=== PATIENT | female | born 1980 | race Caucasian/White ===

== ENCOUNTER 2018-12-21 09:42 | Emergency (ER) | payer BC ==
[2018-12-21 10:00] VITALS: BP 124/73
--- NOTE | 2018-12-21 10:12 | EDM.PDOC ---
ED HPI GENERAL MEDICAL PROBLEM - General Chief Complaint: Eye Problems Stated Complaint: CLAIMS TO HAVE PINK EYE Time Seen by Provider: 12/21/18 09:43 Source of Information: Reports: Patient History Limitations: Reports: No Limitations - History of Present Illness INITIAL COMMENTS - FREE TEXT/NARRATIVE: History of present illness: []Patient has had 2 weeks of pink irritated eyes and has been taking allergy medicines without relief. 3 days ago she started having more crusting when she wakes up in the morning concerned of having pinkeye. Review of systems: As per history of present illness and below otherwise all systems reviewed and negative. Past medical history: As per history of present illness and as reviewed below otherwise noncontributory. Surgical history: As per history of present illness and as reviewed below otherwise noncontributory. Social history: No reported history of drug or alcohol abuse. Family history: As per history of present illness and as reviewed below otherwise noncontributory. Physical exam: General: Well developed, well nourished in NAD HEENT: Atraumatic, normocephalic, pupils reactive, negative for conjunctival pallor, there is mild erythema bilaterally there is no obvious drainage or crusting noted at this time. or scleral icterus, mucous membranes moist, throat clear, neck supple, nontender, trachea midline. Lungs: Clear to auscultation, breath sounds equal bilaterally, chest nontender. Heart: S1S2, regular, negative for clicks, rubs, or JVD. Abdomen: NABS, Soft, nondistended, nontender. Negative for masses or hepatosplenomegaly. Negative for costovertebral tenderness. Pelvis: Stable nontender. Genitourinary: Deferred. Rectal: Deferred. Extremities: Atraumatic, negative for cords or calf pain. Neurovascular unremarkable. Neuro: Awake, alert, oriented. Cranial nerves II through XII unremarkable. Cerebellum unremarkable. Motor and sensory unremarkable throughout. Exam nonfocal. Skin:warm and dry Diagnostics: None Therapeutics: None ED Course: Stable Impression: Adjunctive right is bilateral Prescriptions: Erythromycin ophthalmic ointment Plan: Take meds as directed, follow up with your primary care physician, return to ER if symptoms worsen or change. Definitive disposition and diagnosis as appropriate pending reevaluation and review of above. bilteral eyes Pain Score (Numeric/FACES): 1 - Related Data Allergies Allergy/AdvReac Type Severity Reaction Status Date / Time No Known Allergies Allergy Verified 12/21/18 09:57 Home Meds: Home Meds Control 1 tab PO ASDIRECTED 12/21/14 [History] Lisdexamfetamine Dimesylate [Vyvanse] 20 mg PO DAILY 12/21/14 [History] Spironolactone [Aldactone] 25 mg PO DAILY 12/21/14 [History] Erythromycin Base [Erythromycin 0.5% Ophth Oint] 1 applic OP Q12H #1 tube [Rx] Past Medical History HEENT History: Reports: None Cardiovascular History: Reports: None Respiratory History: Reports: None Gastrointestinal History: Reports: None Genitourinary History: Reports: None 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 Musculoskeletal History: Reports: None Neurological History: Reports: None Psychiatric History: Reports: None Endocrine/Metabolic History: Reports: None Hematologic History: Reports: None Immunologic History: Reports: None Oncologic (Cancer) History: Reports: None Dermatologic History: Reports: None - Infectious Disease History Infectious Disease History: Reports: Chicken Pox - Past Surgical History Head Surgeries/Procedures: Reports: None HEENT Surgical History: Reports: None Cardiovascular Surgical History: Reports: None Respiratory Surgical History: Reports: None GI Surgical History: Reports: None Female Surgical History: Reports: None Endocrine Surgical History: Reports: None Neurological Surgical History: Reports: None Musculoskeletal Surgical History: Reports: None Oncologic Surgical History: Reports: None Dermatological Surgical History: Reports: None Social & Family History - Family History Family Medical History: Noncontributory - Tobacco Use Smoking Status *Q: Never Smoker Second Hand Smoke Exposure: No - Caffeine Use Caffeine Use: Reports: None - Recreational Drug Use Recreational Drug Use: No ED ROS GENERAL - Review of Systems Review Of Systems: See Below ED EXAM GENERAL W FULL EYE - Physical Exam Exam: See Below Course - Vital Signs Last Recorded V/S: Last Vital Signs Temp 96.1 F 12/21/18 09:58 Pulse 95 12/21/18 09:58 Resp 18 12/21/18 09:58 BP 124/73 12/21/18 09:58 Pulse Ox 100 12/21/18 09:58 Departure - Departure Time of Disposition: 10:04 Disposition: Home, Self-Care 01 Condition: Good Clinical Impression: Conjunctivitis Qualifiers: Conjunctivitis type: unspecified Laterality: bilateral Qualified Code(s): H10.9 - Unspecified conjunctivitis - Discharge Information *PRESCRIPTION DRUG MONITORING PROGRAM REVIEWED*: No *COPY OF PRESCRIPTION DRUG MONITORING REPORT IN PATIENT IVÁN: No Prescriptions: Erythromycin Base [Erythromycin 0.5% Ophth Oint] 1 applic OP Q12H #1 tube Referrals: Alfredo Murguia MD [Primary Care Provider] - Additional Instructions: The following information is given to patients seen in the emergency department who are being discharged to home. This information is to outline your options for follow-up care. We provide all patients seen in our emergency department with a follow-up referral. The need for follow-up, as well as the timing and circumstances, are variable depending upon the specifics of your emergency department visit. If you don't have a primary care physician on staff, we will provide you with a referral. We always advise you to contact your personal physician following an emergency department visit to inform them of the circumstance of the visit and for follow-up with them and/or the need for any referrals to a consulting specialist. The emergency department will also refer you to a specialist when appropriate. This referral assures that you have the opportunity for follow-up care with a specialist. All of these measure are taken in an effort to provide you with optimal care, which includes your follow-up. Under all circumstances we always encourage you to contact your private physician who remains a resource for coordinating your care. When calling for follow-up care, please make the office aware that this follow-up is from your recent emergency room visit. If for any reason you are refused follow-up, please contact the [facility] Emergency Department at and asked to speak to the emergency department charge nurse. [facility] [address] [place] [id number]
== END 2018-12-21 10:23 | disposition home or self-care (01) ==
LOC: MW.ED 09:42
DX: H10.9 Unspecified conjunctivitis (principal); Z79.899 Other long term (current) drug therapy; Z79.3 Long term (current) use of hormonal contraceptives
CPT/HCPCS: 99282; 99283

== ENCOUNTER 2019-04-30 18:23 | Emergency (ER) | payer BC, OTHER ==
[2019-04-30 18:52] VITALS: PULSE 96
--- NOTE | 2019-04-30 19:14 | EDM.PDOC ---
ED HPI GENERAL MEDICAL PROBLEM - General Chief Complaint: Respiratory Problem Stated Complaint: FLU Time Seen by Provider: 04/30/19 18:49 Source of Information: Reports: Patient History Limitations: Reports: No Limitations - History of Present Illness INITIAL COMMENTS - FREE TEXT/NARRATIVE: HISTORY AND PHYSICAL: History of present illness: Patient is a 38-year-old female who presents to the ED today with concern of generalized body aches, low-grade fever, and cough. Patient states that her fever at home was been around 100. Patient states that over the past 1-2 weeks she has had a cough. Patient denies any health history or any other symptoms or concerns. Patient denies chest pain, shortness of breath. Denies headache, neck stiff ness , change in vision, syncope, or near syncope. Denies nausea, vomiting, abdominal pain, diarrhea, constipation, or dysuria. Has not noted any blood in urine or stool. Patient has been eating and drinking appropriately. Review of systems: As per history of present illness and below otherwise all systems reviewed and negative. Past medical history: As per history of present illness and as reviewed below otherwise noncontributory. Surgical history: As per history of present illness and as reviewed below otherwise noncontributory. Social history: See social history for further information Family history: As per history of present illness and as reviewed below otherwise noncontributory. Physical exam: General: Patient is alert, oriented, and in no acute distress. Patient sitting comfortably on exam table. HEENT: Atraumatic, normocephalic, pupils equal and reactive bilaterally, negative for conjunctival pallor or scleral icterus, mucous membranes moist, TMs normal bilaterally, throat clear, neck supple, nontender, trachea midline. No drooling or trismus noted. No meningeal signs. No hot potato voice noted. Lungs: Clear to auscultation, breath sounds equal bilaterally, chest nontender. Dry cough on exam. Heart: S1S2, regular rate and rhythm without overt murmur Abdomen: Soft, nondistended, nontender. Negative for masses or hepatosplenomegaly. Negative for costovertebral tenderness. Pelvis: Stable nontender. Genitourinary: Deferred. Rectal: Deferred. Skin: Intact, warm, dry. No lesions or rashes noted. Extremities: Atraumatic, negative for cords or calf pain. Neurovascular unremarkable. Neuro: Awake, alert, oriented. Cranial nerves II through XII unremarkable. Cerebellum unremarkable. Motor and sensory unremarkable throughout. Exam nonfocal. Notes: UA does show a early urinary tract infection. Will start on antibiotic at this time and follow culture. Discussed the importance for follow with the primary care provider. Voices understanding and is agreeable to plan of care. Denies any further questions or concerns at this time. Diagnostics: Influenza, CBC, CMP, UA, urine hCG, chest x-ray, urine culture Therapeutics: None Prescription: Macrobid Impression: Flu-like illness Urinary tract infection Plan: 1. Take medication as prescribed. You can alternate ibuprofen and Tylenol as directed for pain and discomfort. 2. Follow-up with your primary care provider as discussed. Return to the ED as needed and as discussed. Definitive disposition and diagnosis as appropriate pending reevaluation and review of above. 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 Musculoskeletal History: Reports: None Neurological History: Reports: None Psychiatric History: Reports: ADD, Anxiety Endocrine/Metabolic History: Reports: None Hematologic History: Reports: None Immunologic History: Reports: None Oncologic (Cancer) History: Reports: None Dermatologic History: Reports: None - Infectious Disease History Infectious Disease History: Reports: Chicken Pox - Past Surgical History Head Surgeries/Procedures: Reports: None HEENT Surgical History: Reports: None Cardiovascular Surgical History: Reports: None Respiratory Surgical History: Reports: None GI Surgical History: Reports: None Female Surgical History: Reports: Section Endocrine Surgical History: Reports: None Neurological Surgical History: Reports: None Musculoskeletal Surgical History: Reports: None Oncologic Surgical History: Reports: None Dermatological Surgical History: Reports: None Social & Family History - Family History Family Medical History: Noncontributory - Tobacco Use Smoking Status *Q: Never Smoker - Caffeine Use Caffeine Use: Reports: None - Recreational Drug Use Recreational Drug Use: No ED ROS GENERAL - Review of Systems Review Of Systems: Comprehensive ROS is negative, except as noted in HPI. ED EXAM, GENERAL - Physical Exam Exam: See Below (See dictation) Course - Vital Signs Last Recorded V/S: Last Vital Signs Temp 99.0 F 04/30/19 18:49 Pulse 96 04/30/19 18:49 Resp 18 04/30/19 18:49 BP 123/82 04/30/19 18:49 Pulse Ox 99 04/30/19 18:49 - Orders/Labs/Meds Orders: Active Orders 24 hr Category Date Time Status CULTURE URINE [RM] Stat Lab 04/30/19 20:13 Ordered Labs: Laboratory Tests 04/30/19 04/30/19 04/30/19 Range/Units 19:15 19:15 19:25 WBC 11.09 H (4.0-11.0) K/uL RBC 4.11 L (4.30-5.90) M/uL Hgb 12.6 (12.0-16.0) g/dL Hct 37.9 (36.0-46.0) % MCV 92.2 (80.0-98.0) fL MCH 30.7 (27.0-32.0) pg MCHC 33.2 (31.0-37.0) g/dL RDW Std Deviation 44.6 (28.0-62.0) fl RDW Coeff of Ghanshyam 13 (11.0-15.0) % Plt Count 283 (150-400) K/uL MPV 9.70 (7.40-12.00) fL Neut % (Auto) 79.1 (48.0-80.0) % Lymph % (Auto) 10.1 L (16.0-40.0) % Ple[place] % (Auto) 9.3 (0.0-15.0) % Eos % (Auto) 1.2 (0.0-7.0) % Baso % (Auto) 0.3 (0.0-1.5) % Neut # (Auto) 8.8 H (1.4-5.7) K/uL Lymph # (Auto) 1.1 (0.6-2.4) K/uL Ple[place] # (Auto) 1.0 H (0.0-0.8) K/uL Eos # (Auto) 0.1 (0.0-0.7) K/uL Baso # (Auto) 0.0 (0.0-0.1) K/uL Nucleated RBC % 0.0 /100WBC Nucleated RBCs # 0 K/uL Sodium (136-145) mmol/L Potassium (3.5-5.1) mmol/L Chloride (98-107) mmol/L Carbon Dioxide (21.0-32.0) mmol/L BUN (7.0-18.0) mg/dL Creatinine (0.6-1.0) mg/dL Est Cr Clr Drug Dosing mL/min Estimated GFR (MDRD) ml/min Glucose (74-106) mg/dL Calcium (8.5-10.1) mg/dL Total Bilirubin (0.2-1.0) mg/dL AST (15-37) IU/L ALT (14-63) IU/L Alkaline Phosphatase (46-116) U/L Total Protein (6.4-8.2) g/dL Albumin (3.4-5.0) g/dL Globulin (2.6-4.0) g/dL Albumin/Globulin Ratio (0.9-1.6) Urine Color YELLOW Urine Appearance CLEAR Urine pH 5.5 (5.0-8.0) Ur Specific Wolcott 1.025 (1.001-1.035) Urine Protein NEGATIVE (NEGATIVE) mg/dL Urine Glucose (UA) NEGATIVE (NEGATIVE) mg/dL Urine Ketones NEGATIVE (NEGATIVE) mg/dL Urine Occult Blood SMALL H (NEGATIVE) Urine Nitrite NEGATIVE (NEGATIVE) Urine Bilirubin NEGATIVE (NEGATIVE) Urine Urobilinogen 0.2 (<2.0) EU/dL Ur Leukocyte Esterase NEGATIVE (NEGATIVE) Urine RBC 0-3 (0-2/HPF) Urine WBC 1-3 (0-5/HPF) Ur Epithelial Cells FEW (NONE-FEW) Urine Bacteria 1+ H (NEGATIVE) Urine Mucus LIGHT (NONE-MOD) Urine HCG, Qual NEGATIVE (NEGATIVE) 04/30/19 Range/Units 19:25 WBC (4.0-11.0) K/uL RBC (4.30-5.90) M/uL Hgb (12.0-16.0) g/dL Hct (36.0-46.0) % MCV (80.0-98.0) fL MCH (27.0-32.0) pg MCHC (31.0-37.0) g/dL RDW Std Deviation (28.0-62.0) fl RDW Coeff of Ghanshyam (11.0-15.0) % Plt Count (150-400) K/uL MPV (7.40-12.00) fL Neut % (Auto) (48.0-80.0) % Lymph % (Auto) (16.0-40.0) % Pleasants % (Auto) (0.0-15.0) % Eos % (Auto) (0.0-7.0) % Baso % (Auto) (0.0-1.5) % Neut # (Auto) (1.4-5.7) K/uL Lymph # (Auto) (0.6-2.4) K/uL Pleasants # (Auto) (0.0-0.8) K/uL Eos # (Auto) (0.0-0.7) K/uL Baso # (Auto) (0.0-0.1) K/uL Nucleated RBC % /100WBC Nucleated RBCs # K/uL Sodium 138 (136-145) mmol/L Potassium 3.8 (3.5-5.1) mmol/L Chloride 103 (98-107) mmol/L Carbon Dioxide 23.4 (21.0-32.0) mmol/L BUN 5 L (7.0-18.0) mg/dL Creatinine 0.8 (0.6-1.0) mg/dL Est Cr Clr Drug Dosing 87.02 mL/min Estimated GFR (MDRD) > 60.0 ml/min Glucose 94 (74-106) mg/dL Calcium 8.9 (8.5-10.1) mg/dL Total Bilirubin 0.3 (0.2-1.0) mg/dL AST 18 (15-37) IU/L ALT 17 (14-63) IU/L Alkaline Phosphatase 105 (46-116) U/L Total Protein 7.7 (6.4-8.2) g/dL Albumin 3.8 (3.4-5.0) g/dL Globulin 3.9 (2.6-4.0) g/dL Albumin/Globulin Ratio 1.0 (0.9-1.6) Urine Color Urine Appearance Urine pH (5.0-8.0) Ur Specific Wolcott (1.001-1.035) Urine Protein (NEGATIVE) mg/dL Urine Glucose (UA) (NEGATIVE) mg/dL Urine Ketones (NEGATIVE) mg/dL Urine Occult Blood (NEGATIVE) Urine Nitrite (NEGATIVE) Urine Bilirubin (NEGATIVE) Urine Urobilinogen (<2.0) EU/dL Ur Leukocyte Esterase (NEGATIVE) Urine RBC (0-2/HPF) Urine WBC (0-5/HPF) Ur Epithelial Cells (NONE-FEW) Urine Bacteria (NEGATIVE) Urine Mucus (NONE-MOD) Urine HCG, Qual (NEGATIVE) Departure - Departure Time of Disposition: 20:17 Disposition: Home, Self-Care 01 Clinical Impression: Flu-like symptoms Urinary tract infection Qualifiers: Urinary tract infection type: acute cystitis Hematuria presence: without hematuria Qualified Code(s): N30.00 - Acute cystitis without hematuria - Discharge Information Referrals: Rubina Moreno NP [Primary Care Provider] - Forms: ED Department Discharge Additional Instructions: The following information is given to patients seen in the emergency department who are being discharged to home. This information is to outline your options for follow-up care. We provide all patients seen in our emergency department with a follow-up referral. The need for follow-up, as well as the timing and circumstances, are variable depending upon the specifics of your emergency department visit. If you don't have a primary care physician on staff, we will provide you with a referral. We always advise you to contact your personal physician following an emergency department visit to inform them of the circumstance of the visit and for follow-up with them and/or the need for any referrals to a consulting specialist. The emergency department will also refer you to a specialist when appropriate. This referral assures that you have the opportunity for follow-up care with a specialist. All of these measure are taken in an effort to provide you with optimal care, which includes your follow-up. Under all circumstances we always encourage you to contact your private physician who remains a resource for coordinating your care. When calling for follow-up care, please make the office aware that this follow-up is from your recent emergency room visit. If for any reason you are refused follow-up, please contact the [facility] Emergency Department at and asked to speak to the emergency department charge nurse. [facility] [address] [place] [address] [facility] [address] [place] [address] 1. Take medication as prescribed. You can alternate ibuprofen and Tylenol as directed for pain and discomfort. 2. Follow-up with your primary care provider as discussed. Return to the ED as needed and as discussed. - My Orders Last 24 Hours: My Active Orders 04/30/19 20:13 CULTURE URINE [RM] Stat - Assessment/Plan Last 24 Hours: My Active Orders 04/30/19 20:13 CULTURE URINE [RM] Stat
[2019-04-30 19:56] LABS: BLOOD UREA NITROGEN,BUN 5 mg/dL (7.0-18.0); CARBON DIOXIDE,CO2 23.4 mmol/L (21.0-32.0); CHLORIDE,CL 103 mmol/L (98-107); GLUCOSE RANDOM 94 mg/dL (74-106); POTASSIUM,K 3.8 mmol/L (3.5-5.1); SODIUM,NA 138 mmol/L (136-145)
--- NOTE | 2019-04-30 20:13 | CR ---
Indication: Cough. Fever. Technique: PA and lateral views the chest. Comparison: None Findings: The heart is normal in size. The lungs are clear. No infiltrate, pleural effusion, or pneumothorax is identified. Impression: No acute cardiopulmonary process. Dictated by Holly Madrid MD @ Apr 30 2019 8:10PM Signed by Dr. Holly Madrid @ Apr 30 2019 8:10PM
[2019-04-30 20:44] VITALS: BP 129/75
== END 2019-04-30 20:46 | disposition home or self-care (01) ==
LOC: MW.ED 18:23
DX: R05 Cough (principal); R50.9 Fever, unspecified; R52 Pain, unspecified; N30.00 Acute cystitis without hematuria
CPT/HCPCS: 36415; 71046; 71046-26; 80053; 81001; 81025; 85025; 87086; 87804; 99283-25

== ENCOUNTER 2020-06-08 05:36 | Observation (INO) | payer OTHER ==
[2020-06-08] MEDS ORDERED: Morphine 4 MG/ML Syringe IVPUSH ONE ×2 (05:58→08:12)
--- NOTE | 2020-06-08 06:05 | EDM.PDOC ---
<Chucho Hankins - Last Filed: 06/08/20 06:02> ED HPI GENERAL MEDICAL PROBLEM - General Chief Complaint: Abdominal Pain Stated Complaint: ABDOMINAL PAIN Time Seen by Provider: 06/08/20 05:43 Source of Information: Reports: Patient History Limitations: Reports: No Limitations - History of Present Illness INITIAL COMMENTS - FREE TEXT/NARRATIVE: Pt is a 39-year-old female presents today for lower abdominal pain that started about 8 PM. Patient states the pain has been constant and not better with any event. Did mention some pain with twisting or turning. Patient denied any vomiting diarrhea fevers or chills. Patient did report some blood in her urine. Abdomen Pain Score (Numeric/FACES): 10 - Related Data Allergies Allergy/AdvReac Type Severity Reaction Status Date / Time No Known Allergies Allergy Verified 06/08/20 14:47 Home Meds: Home Meds Acetaminophen/HYDROcodone [Orrtanna 325-5 MG] 1 - 2 tab PO Q6H PRN #15 tablet 06/08/20 [Rx] Control Pills 1 tab PO DAILY 06/08/20 [History] Past Medical History HEENT History: Reports: None Cardiovascular History: Reports: None Respiratory History: Reports: None Gastrointestinal History: Reports: None Genitourinary History: Reports: None BUSINESS SYSTEMS MANAGER History: Reports: None Musculoskeletal History: Reports: None Neurological History: Reports: None Psychiatric History: Reports: None Endocrine/Metabolic History: Reports: None Insulin Pump Model and Air Tucker: None Hematologic History: Reports: None Immunologic History: Reports: None Oncologic (Cancer) History: Reports: None Dermatologic History: Reports: None - Infectious Disease History Infectious Disease History: Reports: Chicken Pox - Past Surgical History Head Surgeries/Procedures: Reports: None HEENT Surgical History: Reports: None Cardiovascular Surgical History: Reports: None Respiratory Surgical History: Reports: None GI Surgical History: Reports: None Female Surgical History: Reports: Section Endocrine Surgical History: Reports: None Neurological Surgical History: Reports: None Musculoskeletal Surgical History: Reports: None Oncologic Surgical History: Reports: None Dermatological Surgical History: Reports: None Social & Family History - Family History Family Medical History: No Pertinent Family History - Tobacco Use Tobacco Use Status *Q: Never Tobacco User - Caffeine Use Caffeine Use: Reports: None - Recreational Drug Use Recreational Drug Use: No ED ROS GENERAL - Review of Systems Review Of Systems: See Below Constitutional: Reports: No Symptoms HEENT: Reports: No Symptoms Respiratory: Reports: No Symptoms Cardiovascular: Reports: No Symptoms Endocrine: Reports: No Symptoms GI/Abdominal: Reports: Abdominal Pain : Reports: Hematuria Musculoskeletal: Reports: No Symptoms Skin: Reports: No Symptoms Neurological: Reports: No Symptoms Psychiatric: Reports: No Symptoms Hematologic/Lymphatic: Reports: No Symptoms Immunologic: Reports: No Symptoms ED EXAM, GENERAL - Physical Exam Exam: See Below Exam Limited By: No Limitations General Appearance: Alert, WD/WN, No Apparent Distress Respiratory/Chest: No Respiratory Distress Cardiovascular: Regular Rate, Rhythm GI/Abdominal: Normal Bowel Sounds, Soft, No Organomegaly, Tender Extremities: Normal Inspection Neurological: Alert, Oriented, Normal Cognition Departure - Departure Disposition: Admitted As Inpatient 68 Clinical Impression: Appendicitis Qualifiers: Appendicitis type: acute appendicitis Acute appendicitis type: unspecified acute appendicitis type Qualified Code(s): K35.80 - Unspecified acute appendicitis - Discharge Information Sepsis Event Note (ED) - Evaluation Sepsis Screening Result: No Definite Risk - Assessment/Plan Assessment:: Patient is a 39-year-old female who presents today for abdominal pain. Patient will have labs CT scan the pain control and reassess. <Mio Ye - Last Filed: 06/08/20 18:13> ED HPI GENERAL MEDICAL PROBLEM - History of Present Illness INITIAL COMMENTS - FREE TEXT/NARRATIVE: Patient was signed out to me by Dr. Hankins pending CT abdomen pelvis at 7 AM I did reevaluate the patient and patient had continued pain which is worse in the right lower quadrant with minimal rebound but significant tenderness. The patient's vitals at this time are stable. Labs reviewed which does show a leukocytosis of 18.52 with neutrophilic predominance. CMP reveals hyponatremia at 133 otherwise unremarkable. Urine hCG was negative. Urinalysis was negative The radiological images were viewed by myself along with reading the report from the radiologist. CT abdomen pelvis with contrast reveals acute mild appendicitis without any evidence of perforation or abscess. There is some colonic diverticulosis After imaging I did discuss the results with the patient. I discussed her at this time that I would like to make her n.p.o. At the time of my reevaluation she had some continued abdominal pain. We will provide the patient with additional morphine IV. I discussed her at this time that I would like to start her on antibiotics and that I would need to contact a surgeon. She was amenable to this plan. I contacted Dr. Child who stated that he would come and evaluate the patient. I also started the patient on maintenance fluids at 125 cc/h. DISPOSITION: The patient was taken to the operating room for appendicitis CONDITION: Fair PROCEDURES: None FINAL IMPRESSION(S)/DIAGNOSES: 1. Acute appendicitis Mio Ye M.D. Course - Vital Signs Last Recorded V/S: Last Vital Signs Temp 36.8 C 06/08/20 14:00 Pulse 72 06/08/20 15:05 Resp 14 06/08/20 15:05 BP 94/54 L 06/08/20 15:05 Pulse Ox 98 06/08/20 15:05 - Orders/Labs/Meds Orders: Active Orders 24 hr Category Date Time Status Admission Status [Patient Status] [ADT] Stat ADT 06/08/20 09:35 Active Cardiac Monitoring [RC] . DIRECTED Care 06/08/20 09:35 Active Acetaminophen [Ofirmev] 1,000 mg Med 06/08/20 10:51 Active Premix Bag 1 bag IV ONETIME Lactated Ringers [Ringers, Lactated] 1,000 ml Med 06/08/20 08:15 Active IV ASDIRECTED fentaNYL [Sublimaze] Med 06/08/20 10:51 Active 50 mcg IVPUSH Q5M PRN Medication Orders Hydrocodone Bitart/Acetaminophen ([place] 325-5 Mg) 2 tab PO Q4H PRN PRN Reason: Pain (moderate 4-6) Last Admin: 06/08/20 17:18 Dose: 2 tab Documented by: DAVID Docusate Sodium (Colace) 100 mg PO BID PRN PRN Reason: Constipation Fentanyl (Sublimaze) 50 mcg IVPUSH Q5M PRN PRN Reason: Pain Hydromorphone HCl (Dilaudid) 0.5 mg IVPUSH Q1H PRN PRN Reason: Pain (severe 7-10) Lactated Ringer's (Ringers, Lactated) 1,000 mls @ 125 mls/hr IV ASDIRECTED JAMIE Last Admin: 06/08/20 12:28 Dose: 125 mls/hr Documented by: Infusion: 06/08/20 12:28 Dose: 125 mls/hr Documented by: Admin: 06/08/20 08:18 Dose: 125 mls/hr Documented by: RIAN Acetaminophen 1,000 mg/ Premix 100 mls @ 400 mls/hr IV ONETIME PRN PRN Reason: Pain Lactated Ringer's (Ringers, Lactated) 1,000 mls @ 125 mls/hr IV ASDIRECTED [facility] Last Admin: 06/08/20 12:29 Dose: 125 mls/hr Documented by: TWAN Cefoxitin Sodium 2 gm/ Premix 50 mls @ 100 mls/hr IV Q6H [facility] Last Admin: 06/08/20 13:36 Dose: 100 mls/hr Documented by: DAVID Ondansetron HCl (Zofran) 4 mg IVPUSH Q6H PRN PRN Reason: Nausea/Vomiting Labs: Laboratory Tests 06/08/20 06/08/20 06/08/20 Range/Units 05:45 05:45 06:00 WBC 18.52 H (4.0-11.0) K/uL RBC 4.12 L (4.30-5.90) M/uL Hgb 12.1 (12.0-16.0) g/dL Hct 37.2 (36.0-46.0) % MCV 90.3 (80.0-98.0) fL MCH 29.4 (27.0-32.0) pg MCHC 32.5 (31.0-37.0) g/dL RDW Std Deviation 44.0 (28.0-62.0) fl RDW Coeff of Ghanshyam 13 (11.0-15.0) % Plt Count 364 (150-400) K/uL MPV 9.80 (7.40-12.00) fL Neut % (Auto) 89.3 H (48.0-80.0) % Lymph % (Auto) 3.8 L (16.0-40.0) % [place] % (Auto) 6.6 (0.0-15.0) % Eos % (Auto) 0.1 (0.0-7.0) % Baso % (Auto) 0.2 (0.0-1.5) % Neut # (Auto) 16.6 H (1.4-5.7) K/uL Lymph # (Auto) 0.7 (0.6-2.4) K/uL [place] # (Auto) 1.2 H (0.0-0.8) K/uL Eos # (Auto) 0.0 (0.0-0.7) K/uL Baso # (Auto) 0.0 (0.0-0.1) K/uL Nucleated RBC % 0.0 /100WBC Nucleated RBCs # 0 K/uL Sodium 133 L (136-145) mmol/L Potassium 4.0 (3.5-5.1) mmol/L Chloride 100 (98-107) mmol/L Carbon Dioxide 24.3 (21.0-32.0) mmol/L BUN 5 L (7.0-18.0) mg/dL Creatinine 0.8 (0.6-1.0) mg/dL Est Cr Clr Drug Dosing 93.63 mL/min Estimated GFR (MDRD) > 60.0 ml/min Glucose 115 H (74-106) mg/dL Calcium 9.0 (8.5-10.1) mg/dL Total Bilirubin 0.6 (0.2-1.0) mg/dL AST 18 (15-37) IU/L ALT 20 (14-63) IU/L Alkaline Phosphatase 74 (46-116) U/L Total Protein 6.9 (6.4-8.2) g/dL Albumin 3.6 (3.4-5.0) g/dL Globulin 3.3 (2.6-4.0) g/dL Albumin/Globulin Ratio 1.1 (0.9-1.6) Urine Color YELLOW Urine Appearance CLEAR Urine pH 7.0 (5.0-8.0) Ur Specific [place] 1.015 (1.001-1.035) Urine Protein NEGATIVE (NEGATIVE) mg/dL Urine Glucose (UA) NEGATIVE (NEGATIVE) mg/dL Urine Ketones NEGATIVE (NEGATIVE) mg/dL Urine Occult Blood NEGATIVE (NEGATIVE) Urine Nitrite NEGATIVE (NEGATIVE) Urine Bilirubin NEGATIVE (NEGATIVE) Urine Urobilinogen 0.2 (<2.0) EU/dL Ur Leukocyte Esterase NEGATIVE (NEGATIVE) Urine HCG, Qual (NEGATIVE) SARS-CoV-2 RNA (ASIA) (NEGATIVE) 06/08/20 06/08/20 Range/Units 06:00 08:04 WBC (4.0-11.0) K/uL RBC (4.30-5.90) M/uL Hgb (12.0-16.0) g/dL Hct (36.0-46.0) % MCV (80.0-98.0) fL MCH (27.0-32.0) pg MCHC (31.0-37.0) g/dL RDW Std Deviation (28.0-62.0) fl RDW Coeff of Ghanshyam (11.0-15.0) % Plt Count (150-400) K/uL MPV (7.40-12.00) fL Neut % (Auto) (48.0-80.0) % Lymph % (Auto) (16.0-40.0) % [place] % (Auto) (0.0-15.0) % Eos % (Auto) (0.0-7.0) % Baso % (Auto) (0.0-1.5) % Neut # (Auto) (1.4-5.7) K/uL Lymph # (Auto) (0.6-2.4) K/uL [place] # (Auto) (0.0-0.8) K/uL Eos # (Auto) (0.0-0.7) K/uL Baso # (Auto) (0.0-0.1) K/uL Nucleated RBC % /100WBC Nucleated RBCs # K/uL Sodium (136-145) mmol/L Potassium (3.5-5.1) mmol/L Chloride (98-107) mmol/L Carbon Dioxide (21.0-32.0) mmol/L BUN (7.0-18.0) mg/dL Creatinine (0.6-1.0) mg/dL Est Cr Clr Drug Dosing mL/min Estimated GFR (MDRD) ml/min Glucose (74-106) mg/dL Calcium (8.5-10.1) mg/dL Total Bilirubin (0.2-1.0) mg/dL AST (15-37) IU/L ALT (14-63) IU/L Alkaline Phosphatase (46-116) U/L Total Protein (6.4-8.2) g/dL Albumin (3.4-5.0) g/dL Globulin (2.6-4.0) g/dL Albumin/Globulin Ratio (0.9-1.6) Urine Color Urine Appearance Urine pH (5.0-8.0) Ur Specific [place] (1.001-1.035) Urine Protein (NEGATIVE) mg/dL Urine Glucose (UA) (NEGATIVE) mg/dL Urine Ketones (NEGATIVE) mg/dL Urine Occult Blood (NEGATIVE) Urine Nitrite (NEGATIVE) Urine Bilirubin (NEGATIVE) Urine Urobilinogen (<2.0) EU/dL Ur Leukocyte Esterase (NEGATIVE) Urine HCG, Qual NEGATIVE (NEGATIVE) SARS-CoV-2 RNA (ASIA) NEGATIVE (NEGATIVE) Meds: Medications Generic Name Dose Route Start Last Admin Trade Name Freq PRN Reason Stop Dose Admin Hydrocodone Bitart/Acetaminophen 2 tab 06/08/20 12:04 06/08/20 17:18 Orrtanna 325-5 Mg PO 2 tab Q4H PRN Administration Pain (moderate 4-6) Docusate Sodium 100 mg 06/08/20 12:04 Colace PO BID PRN Constipation Fentanyl 50 mcg 06/08/20 10:51 Sublimaze IVPUSH Q5M PRN Pain Hydromorphone HCl 0.5 mg 06/08/20 12:04 Dilaudid IVPUSH Q1H PRN Pain (severe 7-10) Lactated Ringer's 1,000 mls @ 125 mls/hr 06/08/20 08:15 06/08/20 12:28 Ringers, Lactated IV 125 mls/hr ASDIRECTED JAMIE Administration Acetaminophen 1,000 mg/ Premix 100 mls @ 400 mls/hr 06/08/20 10:51 IV ONETIME PRN Pain Lactated Ringer's 1,000 mls @ 125 mls/hr 06/08/20 12:15 06/08/20 12:29 Ringers, Lactated IV 125 mls/hr ASDIRECTED JAMIE Administration Cefoxitin Sodium 2 gm/ Premix 50 mls @ 100 mls/hr 06/08/20 12:15 06/08/20 13:36 IV 100 mls/hr Q6H JAMIE Administration Ondansetron HCl 4 mg 06/08/20 12:04 Zofran IVPUSH Q6H PRN Nausea/Vomiting Discontinued Medications Generic Name Dose Route Start Last Admin Trade Name Freq PRN Reason Stop Dose Admin Bupivacaine HCl Confirm 06/08/20 10:11 Sensorcaine-Mpf 0.5% Administered 06/08/20 10:12 Dose 20 ml .ROUTE .STK-MED ONE Fentanyl Confirm 06/08/20 09:58 Sublimaze Administered 06/08/20 09:59 Dose 250 mcg .ROUTE .STK-MED ONE Fentanyl Confirm 06/08/20 11:29 Sublimaze Administered 06/08/20 11:30 Dose 100 mcg .ROUTE .STK-MED ONE Glycopyrrolate Confirm 06/08/20 09:58 Robinul Administered 06/08/20 09:59 Dose 0.8 mg .ROUTE .STK-MED ONE Metronidazole 500 mg/ Premix 100 mls @ 100 mls/hr 06/08/20 08:03 06/08/20 08:17 IV 06/08/20 09:02 100 mls/hr ONETIME ONE Administration Ceftriaxone Sodium/Dextrose 1 50 mls @ 100 mls/hr 06/08/20 08:03 06/08/20 08:14 gm/ Premix IV 06/08/20 08:32 100 mls/hr ONETIME ONE Administration Iopamidol 80 ml 06/08/20 07:00 06/08/20 07:05 Isovue Multipack-370 (76%) IVPUSH 06/08/20 07:01 80 ml ONETIME STA Administration Ketorolac Tromethamine Confirm 06/08/20 09:58 Toradol Administered 06/08/20 09:59 Dose 30 mg .ROUTE .STK-MED ONE Lidocaine Confirm 06/08/20 09:58 Xylocaine-Mpf 2% Administered 06/08/20 09:59 Dose 5 ml .ROUTE .STK-MED ONE Midazolam HCl Confirm 06/08/20 09:58 Versed 1 Mg/Ml Administered 06/08/20 09:59 Dose 2 mg .ROUTE .STK-MED ONE Morphine Sulfate 4 mg 06/08/20 05:58 06/08/20 06:09 Morphine IVPUSH 06/08/20 05:59 4 mg ONETIME ONE Administration Morphine Sulfate 4 mg 06/08/20 08:12 06/08/20 08:17 Morphine IVPUSH 06/08/20 08:13 4 mg ONETIME ONE Administration Octyl Cyanoacrylate Confirm 06/08/20 10:11 Dermabond Advance Administered 06/08/20 10:12 Dose 1 applic .ROUTE .STK-MED ONE Ondansetron HCl Confirm 06/08/20 09:58 Zofran Administered 06/08/20 09:59 Dose 4 mg .ROUTE .STK-MED ONE Propofol Confirm 06/08/20 09:57 Diprivan 20 Ml Administered 06/08/20 09:58 Dose 200 mg .ROUTE .STK-MED ONE Rocuronium [place] Confirm 06/08/20 09:58 Rocuronium [place] Administered 06/08/20 09:59 Dose 50 mg .ROUTE .STK-MED ONE Departure - Departure Time of Disposition: 09:35 Sepsis Event Note (ED) - Focused Exam Vital Signs: Vital Signs Pulse Resp BP Pulse Ox 06/08/20 09:19 72 16 132/85 97 06/08/20 08:50 70 16 131/81 98 06/08/20 07:50 68 16 139/88 96 06/08/20 07:17 72 16 136/84 99 06/08/20 06:20 65 18 131/86 99 - My Orders Last 24 Hours: My Active Orders 06/08/20 08:15 Lactated Ringers [Ringers, Lactated] 1,000 ml IV ASDIRECTED 06/08/20 09:35 Admission Status [Patient Status] [ADT] Stat Cardiac Monitoring [RC] . DIRECTED - Assessment/Plan Last 24 Hours: My Active Orders 06/08/20 08:15 Lactated Ringers [Ringers, Lactated] 1,000 ml IV ASDIRECTED 06/08/20 09:35 Admission Status [Patient Status] [ADT] Stat Cardiac Monitoring [RC] . DIRECTED
[2020-06-08 06:29] LABS: BLOOD UREA NITROGEN,BUN 5 mg/dL (7.0-18.0); CARBON DIOXIDE,CO2 24.3 mmol/L (21.0-32.0); CHLORIDE,CL 100 mmol/L (98-107); GLUCOSE RANDOM 115 mg/dL (74-106); SODIUM,NA 133 mmol/L (136-145)
[2020-06-08] MEDS ORDERED: Iopamidol 755 MG/ML 500 ML Multipack Bottle IVPUSH STA (07:00)
--- NOTE | 2020-06-08 07:52 | CT ---
INDICATION: Lower abdominal pain. TECHNIQUE: CT abdomen and pelvis acquired with 89 mL Isovue 370 IV contrast. COMPARISON: None. FINDINGS: Lower chest: Normal heart size. No pericardial effusion. Lung bases are clear. Partial visualization of breast implants. Liver: Normal size and attenuation with no appreciable intrahepatic lesions. Spleen: Normal size. Pancreas: No appreciable mass or inflammatory changes. Gallbladder and bile ducts: No calcified stones within the gallbladder. No gallbladder wall thickening. Normal caliber bile ducts. Kidneys: Normal size and enhancement. No suspicious renal lesions or hydronephrosis. Adrenal glands: No nodule or mass. No hemorrhage. GI tract: The appendix is retrocecal in location. The base of the appendix is seen on axial image 105, just medial to the ovarian vasculature and external iliac vasculature. A round density at the base of the appendix may be related to an appendicolith. Appendix is mildly dilated, measuring up to 10 mm, with mild appendiceal wall thickening. Mild periappendiceal fat stranding/inflammation is also noted. The appendix extends toward the midline, and is seen anterior to the sacrum on axial image 96. Findings are consistent with mild acute appendicitis. Mild scattered colonic diverticulosis. Moderate to large amount of stool in the colon. Vascular structures: Normal caliber abdominal aorta. Lymph nodes: No pathologically enlarged lymph nodes are identified. Miscellaneous: No free air. Small amount of free fluid is seen in the pelvis. Pelvic Organs: Uterus is present. No appreciable adnexal mass. Collapsed urinary bladder is unremarkable. Bones: No acute abnormality. IMPRESSION: 1. Findings are consistent with mild acute appendicitis. No evidence of perforation. No abscess. 2. Incidental findings as noted. Dictated by Hayder Lock MD @ 06/08/2020 7:50:30 AM Please note that all CT scans at this facility use dose modulation, iterative reconstruction, and/or weight-based dosing when appropriate to reduce radiation dose to as low as reasonably achievable. Dictated by: Hayder Lock MD @ 06/08/2020 07:51:17 (Electronically Signed)
[2020-06-08] MEDS ORDERED: cefTRIAXone 1 GM in Premix Bag 1 BAG IV ONE (08:03)
[2020-06-08] MEDS ORDERED: metroNIDAZOLE/Normal Saline 500 MG in Premix Bag 1 BAG IV ONE (08:03)
[2020-06-08] MEDS: Lactated Ringers 1,000 ML IV SCH ×2 (08:18→12:28)
[2020-06-08] MEDS ORDERED: Propofol 200 MG/20 ML SDV ONE (09:57)
[2020-06-08] MEDS ORDERED: Ketorolac 30 MG/ML SDV ONE (09:58)
[2020-06-08] MEDS ORDERED: Lidocaine 2% 5 ML SDV ONE (09:58)
[2020-06-08] MEDS ORDERED: Rocuronium Bromide 50 MG/5 ML Syringe ONE (09:58)
[2020-06-08] MEDS ORDERED: fentaNYL 250 MCG/5 ML SDV ONE (09:58)
[2020-06-08] MEDS ORDERED: Ondansetron 4 MG/2 ML SDV ONE (09:58)
[2020-06-08] MEDS ORDERED: Glycopyrrolate 0.2 MG/ML SDV ONE (09:58)
[2020-06-08] MEDS ORDERED: Midazolam 1 MG/ML 2 ML SDV ONE (09:58)
[2020-06-08] MEDS ORDERED: Octyl 2-Cyanoacrylate 1 Tube ONE (10:11)
[2020-06-08] MEDS ORDERED: Bupivacaine 0.5% 10 ML SDV ONE (10:11)
[2020-06-08] MEDS ORDERED: Acetaminophen 1,000 MG in Premix Bag 1 BAG IV PRN (10:51)
[2020-06-08] MEDS ORDERED: fentaNYL 100 MCG/2 ML SDV IVPUSH PRN (10:51)
--- NOTE | 2020-06-08 10:54 | PCM.PREANE ---
Preanesthetic Assessment - Anesthesia/Transfusion/Family Hx Anesthesia History: Prior Anesthesia Without Reaction Family History of Anesthesia Reaction: No - Review of Systems Gastrointestinal: Abdominal Pain - Physical Assessment NPO Status Date: 06/08/20 NPO Status Time: 00:05 Vital Signs: Last Vital Signs Temp 36.1 C 06/08/20 05:45 Pulse 72 06/08/20 09:19 Resp 16 06/08/20 09:19 BP 132/85 06/08/20 09:19 Pulse Ox 97 06/08/20 09:19 Height: 1.7 m Weight: 85.275 kg ASA Class: 1E Thyro-Mental Finger Breadths: 3 Mouth Opening Finger Breadths: 3 - Lab Values: Laboratory Last Values WBC 18.52 K/uL (4.0-11.0) H 06/08/20 05:45 RBC 4.12 M/uL (4.30-5.90) L 06/08/20 05:45 Hgb 12.1 g/dL (12.0-16.0) 06/08/20 05:45 Hct 37.2 % (36.0-46.0) 06/08/20 05:45 MCV 90.3 fL (80.0-98.0) 06/08/20 05:45 MCH 29.4 pg (27.0-32.0) 06/08/20 05:45 MCHC 32.5 g/dL (31.0-37.0) 06/08/20 05:45 RDW Std Deviation 44.0 fl (28.0-62.0) 06/08/20 05:45 RDW Coeff of Ghanshyam 13 % (11.0-15.0) 06/08/20 05:45 Plt Count 364 K/uL (150-400) 06/08/20 05:45 MPV 9.80 fL (7.40-12.00) 06/08/20 05:45 Neut % (Auto) 89.3 % (48.0-80.0) H 06/08/20 05:45 Lymph % (Auto) 3.8 % (16.0-40.0) L 06/08/20 05:45 [place] % (Auto) 6.6 % (0.0-15.0) 06/08/20 05:45 Eos % (Auto) 0.1 % (0.0-7.0) 06/08/20 05:45 Baso % (Auto) 0.2 % (0.0-1.5) 06/08/20 05:45 Neut # (Auto) 16.6 K/uL (1.4-5.7) H 06/08/20 05:45 Lymph # (Auto) 0.7 K/uL (0.6-2.4) 06/08/20 05:45 [place] # (Auto) 1.2 K/uL (0.0-0.8) H 06/08/20 05:45 Eos # (Auto) 0.0 K/uL (0.0-0.7) 06/08/20 05:45 Baso # (Auto) 0.0 K/uL (0.0-0.1) 06/08/20 05:45 Nucleated RBC % 0.0 /100WBC 06/08/20 05:45 Nucleated RBCs # 0 K/uL 06/08/20 05:45 Sodium 133 mmol/L (136-145) L 06/08/20 05:45 Potassium 4.0 mmol/L (3.5-5.1) 06/08/20 05:45 Chloride 100 mmol/L (98-107) 06/08/20 05:45 Carbon Dioxide 24.3 mmol/L (21.0-32.0) 06/08/20 05:45 BUN 5 mg/dL (7.0-18.0) L 06/08/20 05:45 Creatinine 0.8 mg/dL (0.6-1.0) 06/08/20 05:45 Est Cr Clr Drug Dosing 93.63 mL/min 06/08/20 05:45 Estimated GFR (MDRD) > 60.0 ml/min 06/08/20 05:45 Glucose 115 mg/dL (74-106) H 06/08/20 05:45 Calcium 9.0 mg/dL (8.5-10.1) 06/08/20 05:45 Total Bilirubin 0.6 mg/dL (0.2-1.0) 06/08/20 05:45 AST 18 IU/L (15-37) 06/08/20 05:45 ALT 20 IU/L (14-63) 06/08/20 05:45 Alkaline Phosphatase 74 U/L (46-116) 06/08/20 05:45 Total Protein 6.9 g/dL (6.4-8.2) 06/08/20 05:45 Albumin 3.6 g/dL (3.4-5.0) 06/08/20 05:45 Globulin 3.3 g/dL (2.6-4.0) 06/08/20 05:45 Albumin/Globulin Ratio 1.1 (0.9-1.6) 06/08/20 05:45 Urine Color YELLOW 06/08/20 06:00 Urine Appearance CLEAR 06/08/20 06:00 Urine pH 7.0 (5.0-8.0) 06/08/20 06:00 Ur Specific [place] 1.015 (1.001-1.035) 06/08/20 06:00 Urine Protein NEGATIVE mg/dL (NEGATIVE) 06/08/20 06:00 Urine Glucose (UA) NEGATIVE mg/dL (NEGATIVE) 06/08/20 06:00 Urine Ketones NEGATIVE mg/dL (NEGATIVE) 06/08/20 06:00 Urine Occult Blood NEGATIVE (NEGATIVE) 06/08/20 06:00 Urine Nitrite NEGATIVE (NEGATIVE) 06/08/20 06:00 Urine Bilirubin NEGATIVE (NEGATIVE) 06/08/20 06:00 Urine Urobilinogen 0.2 EU/dL (<2.0) 06/08/20 06:00 Ur Leukocyte Esterase NEGATIVE (NEGATIVE) 06/08/20 06:00 Urine HCG, Qual NEGATIVE (NEGATIVE) 06/08/20 06:00 SARS-CoV-2 RNA (ASIA) NEGATIVE (NEGATIVE) 06/08/20 08:04 - Allergies Allergies/Adverse Reactions: Allergies Allergy/AdvReac Type Severity Reaction Status Date / Time No Known Allergies Allergy Verified 06/08/20 05:52 - Acknowledgements Anesthesia Type Planned: General Anesthesia Pt an Appropriate Candidate for the Planned Anesthesia: Yes Alternatives and Risks of Anesthesia Discussed w Pt/Guardian: Yes PreAnesthesia Questionnaire HEENT History: Reports: None Cardiovascular History: Reports: None Respiratory History: Reports: None Gastrointestinal History: Reports: None Genitourinary History: Reports: None [employer] History: Reports: None Musculoskeletal History: Reports: None Neurological History: Reports: None Psychiatric History: Reports: ADHD Endocrine/Metabolic History: Reports: None Hematologic History: Reports: None Immunologic History: Reports: None Oncologic (Cancer) History: Reports: None Dermatologic History: Reports: None - Infectious Disease History Infectious Disease History: Reports: Chicken Pox - Past Surgical History Head Surgeries/Procedures: Reports: None HEENT Surgical History: Reports: None Cardiovascular Surgical History: Reports: None Respiratory Surgical History: Reports: None GI Surgical History: Reports: None Female Surgical History: Reports: Section Endocrine Surgical History: Reports: None Neurological Surgical History: Reports: None Musculoskeletal Surgical History: Reports: None Oncologic Surgical History: Reports: None Dermatological Surgical History: Reports: None - SUBSTANCE USE Tobacco Use Status *Q: Never Tobacco User Recreational Drug Use History: No - HOME MEDS Home Medications: Home Meds Control Pills 1 tab PO DAILY 06/08/20 [History] - CURRENT (IN HOUSE) MEDS Current Meds: Current Medications Fentanyl (Sublimaze) 50 mcg IVPUSH Q5M PRN PRN Reason: Pain Lactated Ringer's (Ringers, Lactated) 1,000 mls @ 125 mls/hr IV ASDIRECTED [facility] Last Admin: 06/08/20 08:18 Dose: 125 mls/hr Documented by: Acetaminophen 1,000 mg/ Premix 100 mls @ 400 mls/hr IV Q6H PRN PRN Reason: Pain Discontinued Medications Bupivacaine HCl (Sensorcaine-Mpf 0.5%) Confirm Administered Dose 20 ml .ROUTE .STK-MED ONE Stop: 06/08/20 10:12 Fentanyl (Sublimaze) Confirm Administered Dose 250 mcg .ROUTE .STK-MED ONE Stop: 06/08/20 09:59 Glycopyrrolate (Robinul) Confirm Administered Dose 0.8 mg .ROUTE .STK-MED ONE Stop: 06/08/20 09:59 Metronidazole 500 mg/ Premix 100 mls @ 100 mls/hr IV ONETIME ONE Stop: 06/08/20 09:02 Last Admin: 06/08/20 08:17 Dose: 100 mls/hr Documented by: Ceftriaxone Sodium/Dextrose 1 (gm/ Premix) 50 mls @ 100 mls/hr IV ONETIME ONE Stop: 06/08/20 08:32 Last Admin: 06/08/20 08:14 Dose: 100 mls/hr Documented by: Iopamidol (Isovue Multipack-370 (76%)) 80 ml IVPUSH ONETIME STA Stop: 06/08/20 07:01 Last Admin: 06/08/20 07:05 Dose: 80 ml Documented by: Ketorolac Tromethamine (Toradol) Confirm Administered Dose 30 mg .ROUTE .STK-MED ONE Stop: 06/08/20 09:59 Lidocaine (Xylocaine-Mpf 2%) Confirm Administered Dose 5 ml .ROUTE .STK-MED ONE Stop: 06/08/20 09:59 Midazolam HCl (Versed 1 Mg/Ml) Confirm Administered Dose 2 mg .ROUTE .STK-MED ONE Stop: 06/08/20 09:59 Morphine Sulfate (Morphine) 4 mg IVPUSH ONETIME ONE Stop: 06/08/20 05:59 Last Admin: 06/08/20 06:09 Dose: 4 mg Documented by: Morphine Sulfate (Morphine) 4 mg IVPUSH ONETIME ONE Stop: 06/08/20 08:13 Last Admin: 06/08/20 08:17 Dose: 4 mg Documented by: Octyl Cyanoacrylate (Dermabond Advance) Confirm Administered Dose 1 applic .ROUTE .STK-MED ONE Stop: 06/08/20 10:12 Ondansetron HCl (Zofran) Confirm Administered Dose 4 mg .ROUTE .STK-MED ONE Stop: 06/08/20 09:59 Propofol (Diprivan 20 Ml) Confirm Administered Dose 200 mg .ROUTE .STK-MED ONE Stop: 06/08/20 09:58 Rocuronium Haughton (Rocuronium Haughton) Confirm Administered Dose 50 mg .ROUTE .STK-MED ONE Stop: 06/08/20 09:59
--- NOTE | 2020-06-08 11:28 | CONS ---
DATE OF CONSULTATION: 06/08/2020 DATE OF : 1980 PRIMARY CARE PHYSICIAN: MILAN GODINEZ NP ER Consult. REASON FOR CONSULT: Abdominal pain. HISTORY OF PRESENT ILLNESS: The patient is a pleasant 39-year-old female who says on the way home last night, she started having some abdominal pain around 7 o'clock last night. The pain was diffuse and still it got worse throughout the evening and morning. The pain now is slightly more in the lower abdomen. She denies any fevers or chills. She denies any nausea or vomiting. She denies any change in bowel habits. She went to the ER for evaluation. She had a CT scan done that showed likely mild acute appendicitis. The appendix showed mild wall thickening and periappendiceal fat stranding. Also showed likely appendicolith. Appendix potentially maybe retrocecal. PAST MEDICAL HISTORY: The patient denies any. PAST SURGICAL HISTORY: . CURRENT HOME MEDICATIONS: 1. control. 2. Patient says she received hormonal treatment for IVF treatments. ALLERGIES: No known drug allergies. FAMILY HISTORY: 1. Father with prostate cancer. 2. Says there is pancreatic cancer on the father's side. 3. Says mother side has heart disease. SOCIAL HISTORY: 1. Patient denies any tobacco use. 2. She denies any illicit drug use. 3. She denies any alcohol use. REVIEW OF SYSTEMS: Complete 12+ review of systems was done, was negative except for what is in the HPI. IMAGING: Did review report and images, again as per HPI. There is also quite bit of stool in the colon. LABORATORY DATA: White cell count is 18.5, hemoglobin is 12.1, and platelet count is 364. Sodium 133, potassium 4, chloride 100, BUN is 5, creatinine 0.8, and glucose is 115. test was negative. COVID is negative. PHYSICAL EXAM: General; Patient is resting comfortable in ER bed. She is alert and oriented, and in no acute distress HEET: Head is normal cephalic, atraumatic, She is wearing a mask Lungs: Clear to auscultation bilaterally Heart: regular rate and rhythm. No murmurs heard Abdomen: Soft and nondistended, She does have diffuse tenderness, more in the lower abdomen, some guarding but no rebound tenderness. Muscle skeletal: No gross neruo or muscle defect noted. ASSESSMENT AND PLAN: This is a pleasant 39-year-old female with most likely appendicitis. I did go over with the patient where the appendix was. I went over risks, goals, and alternatives to laparoscopic appendectomy. Risks include but not limited to bleeding, infection, abscess formation, failure of staple line, injury to nearby structures such as ureters or bowel, need to convert to open, or this could be something other than appendicitis. The patient understands, wishes to proceed. The patient received her antibiotics in the ER. We will call the OR crew in for a laparoscopic appendectomy. The patient wishes to be full code for procedure. JILL / NATE /[id number] OLIVERIO
[2020-06-08] MEDS ORDERED: fentaNYL 100 MCG/2 ML SDV ONE (11:29)
[2020-06-08] MEDS ORDERED: HYDROmorphone 2 MG/ML Syringe IVPUSH PRN (12:04)
[2020-06-08] MEDS ORDERED: Acetaminophen/HYDROcodone 325-5 MG Tab PO PRN (12:04)
[2020-06-08] MEDS ORDERED: Docusate Sodium 100 MG Cap PO PRN (12:04)
[2020-06-08] MEDS ORDERED: Ondansetron 4 MG/2 ML SDV IVPUSH PRN (12:04)
--- NOTE | 2020-06-08 12:12 | PCM.OPNOTE ---
- General Post-Op/Procedure Note Date of Surgery/Procedure: 06/08/20 Operative Procedure(s): Laparoscopic appendectomy Findings: Acute appendicitis with areas of necrosis on appendix dictation number [id number] Pre Op Diagnosis: Acute appendicitis Post-Op Diagnosis: acute appendicitis Anesthesia Technique: General ET Tube Primary Surgeon: Woodrow Child Pathology: appendix EBL in mLs: 5 Complications: None Condition: Stable
[2020-06-08] MEDS ORDERED: Lactated Ringers 1,000 ML IV SCH (12:15)
--- NOTE | 2020-06-08 12:33 | PCM.POSTAN ---
POST ANESTHESIA ASSESSMENT - VITAL SIGNS Vital Signs: Last Vital Signs Temp 37.2 C 06/08/20 12:05 Pulse 101 H 06/08/20 12:31 Resp 14 06/08/20 12:31 BP 92/52 L 06/08/20 12:31 Pulse Ox 100 06/08/20 12:31 - RESPIRATORY Respiratory Status: Respiratory Rate WNL - CARDIOVASCULAR CV Status: Pulse Rate WNL - GASTROINTESTINAL GI Status: No Symptoms - POST OP HYDRATION Hydration Status: Adequate & Stable
[2020-06-08] MEDS: cefOXitin 2 GM in Premix Bag 1 BAG IV SCH ×2 (13:36→18:17)
[2020-06-08 18:44] VITALS: BP 121/66; PULSE 87
--- NOTE | 2020-06-08 19:59 | PN ---
SUBJECTIVE: The patient is status post laparoscopic appendectomy. She is doing well. She has tolerated liquids and Jell-O. She has urination, been up and ambulating, and reports feeling much better than before the surgery. She feels ready to go home. OBJECTIVE: GENERAL: The patient is lying comfortably in her hospital bed. She is alert and oriented. ABDOMEN: Soft, nondistended. Some minimal tenderness to the lower abdomen to palpation, much improved from before the surgery and some minimal incisional tenderness. Incisions all clean, dry, and intact. Dermabond in place. No signs of infection. ASSESSMENT AND PLAN: A pleasant 39-year-old female status post laparoscopic appendectomy. actually perforated though microperforation is a possibility. The patient will receive one more dose of antibiotics and then go home. I did go over with the patient discharge instructions. She is to take it easy for the next several days with no strenuous activities or heavy activity, then may return to light duty. She should avoid driving a car for the next several days. She was discharged with pain medication, [place] 5/325. If she has any fevers, chills, nausea or vomiting, or any drainage from her incision, she needs to call our office or go to the ER. All the patient's questions were answered. I did go over the surgery with the patient, did go over her photographs also. JILL / NATE /[id number]
--- NOTE | 2020-06-09 08:10 | OR ---
SURGEON: QUE SINGER MD DATE OF PROCEDURE: 06/08/2020 Jenny Hernandez is the name in the medical records, although patient said she was recently and has changed her name recently to Carrier. PREOPERATIVE DIAGNOSIS: Acute appendicitis. POSTOPERATIVE DIAGNOSIS: Acute appendicitis. PROCEDURE PERFORMED: Laparoscopic appendectomy. FINDINGS: Acute appendicitis. There was quite a bit of reactive murky fluid in the abdominal cavity when entered. The appendix was walled off and antimesenteric middle of the appendix did look a little necrotic but did not look grossly perforated. ESTIMATED BLOOD LOSS: 5 mL. ANESTHESIA: General. COMPLICATIONS: None. SPECIMENS: Appendix. REASON FOR PROCEDURE: Patient is a pleasant 39-year-old female who yesterday evening started to have abdominal pain, that got worse throughout the day, came into the ER today, was found to have elevated white cell count, and a CT scan showing acute appendicitis, possibly retrocecal. I did go over with the patient risks, goals, and alternatives to appendectomy. Risks include but are not limited to bleeding, infection, abscess formation, failure of staple line, need to convert to open, injury to nearby structures, or this could be something other than appendicitis. The patient understands. She wished to proceed. DESCRIPTION OF PROCEDURE: The patient was brought back to the OR. She had already been given antibiotics in the ER. She was prepped and draped in usual sterile fashion. SCDs were placed. Salas catheter placed, and anesthesia provided by Anesthesia Team. Time-out was performed. An infraumbilical incision was made. This was carried down to the fascia. The base of the umbilical stalk was then grasped with Rubin, slightly elevated, and the abdominal cavity was entered with Veress needle. Syringe was placed and pulled back. No blood or succus. Had positive drop test. Now, insufflation was began. Pneumoperitoneum was established. After pneumoperitoneum was established, a 5 mm trocar was placed with a 5 mm camera in it into the abdominal cavity. The abdomen was inspected. No injury was noted. The patient did have what appeared to be some low murky reactive fluid in the abdomen and the pelvis and up and around the liver. Now, the 12 mm trocar was placed in the left lower abdomen. I then placed another 5 mm in the left upper abdomen, so be in better position in case it was retrocecal, we would have to mobilize the cecum. The patient was then placed in a head-down position and airplaned towards myself. The appendix was then identified and was slightly walled-off with some omentum. The appendix actually was not retrocecal. It was gently elevated up. The middle of the appendix on the antimesenteric side did appear to be little necrotic, but no actual perforation was noted. Now, a small window was made in the mesoappendix using a [place], and now the mesoappendix was taken down with Harmonic Scalpel. There was good hemostasis. Now, a blue load linear stapler was placed at the base of the appendix where it joined the cecum and transected. Now, the appendix was placed in EndoCatch bag and removed. Operative site was inspected. The staple line appeared intact. There was good hemostasis along with the mesoappendix. I did do a little bit of suction irrigation at the operative site. Now down the pelvis, there was again that murky fluid. This was suctioned out and then irrigated. I did take a picture of her ovaries and fallopian tubes because she is undergoing fertilization and so she could show her fertility doctors that might be helpful. Attention was brought up above the liver. I did suction out the murky fluid and then did some irrigation to get the rest of the fluid out. The rest of the abdomen was inspected again. Now, the 12 mm trocar was removed, and because of the patient's skinny body habitus, I was able to close the 12 mm trocar with just Vicryl stitch. Now, the pneumoperitoneum was released and other two 5 mm trocars were removed. Port sites were again injected with local and closed with 4-0 Monocryl and Dermabond. At the end of case, sponge and needle counts were correct. The patient was transferred to recovery room in stable condition. JILL SULLIVAN /[id number]
== END 2020-06-08 19:10 | disposition home or self-care (01) ==
LOC: MW.ED 05:36 → MW.MS 09:42 → MW.SDS 09:42 → MW.MS 12:04
PROVIDERS: ADMIT Surgery; ATTEND Surgery
DX: K35.80 Unspecified acute appendicitis (principal); Z01.812 Encounter for preprocedural laboratory examination; Z20.828 Contact with and (suspected) exposure to other viral communicable diseases
CPT/HCPCS: 36415; 44970; 74177; 80053; 81003; 81025; 85025; 87635; 96361; 96365; 96368; 96375; 96376; 99285; A9270; J0694; J0696; J1885; J2001; J2250; J2270; J2704; J3010; J3490; J7120; Q9967; 00840; 88304; 99284; G0378; J2405; U0002

== ENCOUNTER 2022-03-13 05:02 | Inpatient (IN) | payer BC ==
[2022-03-13] MEDS ORDERED: Sodium Chloride 0.9% 10 ML Syringe FLUSH PRN (05:53)
[2022-03-13] MEDS ORDERED: Citric Acid/Sodium Citrate Solution 30 ML Cup PO ONE (05:53)
[2022-03-13] MEDS ORDERED: Lidocaine 1% 50 ML MDV INJECT PRN (05:53)
[2022-03-13] MEDS ORDERED: Methylergonovine 0.2 MG/1 ML Amp IM PRN (05:53)
[2022-03-13] MEDS ORDERED: Butorphanol 1 MG/ML SDV IVPUSH PRN (05:53)
[2022-03-13] MEDS ORDERED: Tranexamic Acid 1,000 MG in Sodium Chloride 0.9% 100 ML IV PRN ×2 (05:53→09:39)
[2022-03-13] MEDS ORDERED: Misoprostol 200 MCG Tab PO PRN (05:53)
[2022-03-13] MEDS ORDERED: Sodium Chloride 0.9% 20 ML SDV IV PRN (05:53)
[2022-03-13] MEDS ORDERED: Water For Irrigation,Sterile 1,000 ML Container IRR PRN (05:53)
[2022-03-13] MEDS ORDERED: Sodium Chloride 0.9% 2.5 ML Syringe FLUSH PRN (05:53)
[2022-03-13] MEDS ORDERED: Carboprost Tromethamine 250 MCG/1 ML Amp IM PRN (05:53)
[2022-03-13] MEDS ORDERED: Oxytocin/0.9 % Sodium Chloride 30 UNIT/500 ML BAG IV SCH ×3 (06:00→09:45)
[2022-03-13] MEDS ORDERED: Lactated Ringers 1,000 ML IV SCH ×3 (06:00→09:45)
[2022-03-13] MEDS ORDERED: HYDROmorphone 1 MG/ML Syringe IVPUSH PRN (06:44)
[2022-03-13] MEDS ORDERED: Metoclopramide 10 MG/2 ML SDV IVPUSH PRN (06:44)
[2022-03-13] MEDS ORDERED: Ondansetron 4 MG/2 ML SDV IVPUSH PRN ×2 (06:44)
[2022-03-13] MEDS ORDERED: Albuterol 0.083% 2.5 MG/3 ML Neb Soln NEB PRN (06:44)
[2022-03-13] MEDS ORDERED: Naloxone 0.4 MG/ML SDV IVPUSH PRN (06:44)
[2022-03-13] MEDS ORDERED: ePHEDrine 50 MG/ML SDV IVPUSH PRN (06:44)
[2022-03-13] MEDS ORDERED: Acetaminophen/oxyCODONE 325-5 MG Tab PO PRN ×2 (06:44→09:39)
[2022-03-13] MEDS ORDERED: fentaNYL 100 MCG/2 ML SDV IVPUSH PRN (06:44)
[2022-03-13] MEDS ORDERED: diphenhydrAMINE 50 MG/ML SDV IVPUSH PRN ×2 (06:44→09:39)
[2022-03-13] MEDS ORDERED: fentaNYL 50 MCG/ML SDV IVPUSH PRN (06:44)
[2022-03-13] MEDS ORDERED: Phenylephrine HCl In 0.9% NaCl 1 MG/10 ML Vial IVPUSH SCH (06:45)
[2022-03-13] MEDS ORDERED: fentaNYL 100 MCG/2 ML SDV ONE (06:55)
[2022-03-13] MEDS ORDERED: Morphine PF 10 MG/10 ML SDV ONE (06:55)
[2022-03-13] MEDS ORDERED: Ropivacaine 0.5% 5 MG/ML 30 ML SDV ONE (06:57)
[2022-03-13] MEDS ORDERED: Lidocaine 2% 5 ML SDV ONE (06:57)
[2022-03-13] MEDS ORDERED: Phenylephrine 1% 10 MG/ML SDV ONE (06:58)
[2022-03-13] MEDS ORDERED: Ondansetron 4 MG/2 ML SDV ONE (06:58)
[2022-03-13] MEDS ORDERED: Dexamethasone 4 MG/ML 5 ML MDV ONE (06:58)
[2022-03-13] MEDS ORDERED: Oxytocin 10 Units/1 ML SDV ONE (06:58)
[2022-03-13] MEDS ORDERED: ceFAZolin 1 GM Vial ONE (07:08)
[2022-03-13] MEDS ORDERED: ceFAZolin/Dextrose,Iso-Osmotic 2 GM/50 ML Duplex Bag (Premix) IV ONE (07:30)
[2022-03-13] MEDS ORDERED: Dexmedetomidine 200 MCG/2 ML SDV IV ONE (08:00)
[2022-03-13] MEDS ORDERED: Tranexamic Acid 1,000 MG/10 ML Vial ONE (08:28)
[2022-03-13] MEDS ORDERED: Phenylephrine HCl In 0.9% NaCl 1 MG/10 ML Vial ONE (08:56)
[2022-03-13] MEDS ORDERED: Acetaminophen 1,000 MG in Premix Bag 1 BAG IV SCH (09:30)
[2022-03-13] MEDS ORDERED: Misoprostol 200 MCG Tab RECTAL PRN (09:39)
[2022-03-13] MEDS ORDERED: Ibuprofen 800 MG Tab PO PRN (09:39)
[2022-03-13] MEDS ORDERED: Bisacodyl 10 MG Supp RECTAL PRN (09:39)
[2022-03-13] MEDS ORDERED: Lanolin 100% Cream 7 GM Tube TOP PRN (09:39)
[2022-03-13] MEDS ORDERED: Oxytocin 10 Units/1 ML SDV IM PRN (09:39)
[2022-03-13] MEDS: Ketorolac 30 MG/ML SDV IVPUSH SCH ×3 (09:45→21:40)
[2022-03-13] MEDS ORDERED: Acetaminophen 1,000 MG in Premix Bag 1 BAG IV ONE (10:30)
[2022-03-13] MEDS: Docusate Sodium 100 MG Cap PO SCH (21:40)
[2022-03-13] MEDS: Ondansetron 4 MG/2 ML SDV IVPUSH PRN (21:41)
[2022-03-14] MEDS ORDERED: NIFEDIPINE 60 MG PO SCH (02:00)
[2022-03-14] MEDS: Ketorolac 30 MG/ML SDV IVPUSH SCH ×2 (04:25→09:19)
[2022-03-14] MEDS: Ondansetron 4 MG/2 ML SDV IVPUSH PRN (04:27)
[2022-03-14] MEDS ORDERED: Lansoprazole 30 MG Orally Disintegrating Tab.CR PO SCH (07:30)
[2022-03-14] MEDS ORDERED: Prenatal Multivitamin with Calcium/Folic Acid/Iron Tab PO SCH (09:00)
[2022-03-14] MEDS: Docusate Sodium 100 MG Cap PO SCH ×2 (09:19→21:30)
[2022-03-14] MEDS: Acetaminophen/oxyCODONE 325-5 MG Tab PO PRN ×2 (18:25→22:22)
[2022-03-14 22:45] VITALS: BP 143/80; PULSE 89
== END 2022-03-15 16:55 | disposition home or self-care (01) | DRG 540 ==
LOC: MW.OB 05:02 → MW.ZCENSUS 03-15 13:50
PROVIDERS: ADMIT Obstetrics & Gynecology; ATTEND Obstetrics & Gynecology
PROC: 10D00Z1 Extraction of Products of Conception, Low, Open Approach (ICD-10-PCS; principal; 2022-03-13)
DX: O34.211 Maternal care for low transverse scar from previous cesarean delivery (principal); O30.043 Twin pregnancy, dichorionic/diamniotic, third trimester; Z37.2 Twins, both liveborn; O32.1XX1 Maternal care for breech presentation, fetus 1; O32.1XX2 Maternal care for breech presentation, fetus 2; O16.4 Unspecified maternal hypertension, complicating childbirth; O99.62 Diseases of the digestive system complicating childbirth; K21.9 Gastro-esophageal reflux disease without esophagitis; Z3A.37 37 weeks gestation of pregnancy
CPT/HCPCS: 01961; 36415; 59025; 64488; 82803; 85014; 85018; 85027; 86592; 86850; 86900; 86901; A9270-GY; J0131; J0690; J1100; J1885; J2274; J2370; J2405; J2590; J2795; J3010; J7120

== ENCOUNTER 2022-05-25 16:21 | Emergency (ER) | payer BC ==
[2022-05-25] MEDS ORDERED: Ondansetron 4 MG/2 ML SDV IVPUSH ONE (17:26)
[2022-05-25] MEDS ORDERED: Sodium Chloride 0.9% 1,000 ML IV ONE (17:26)
[2022-05-25] MEDS ORDERED: fentaNYL 50 MCG/ML SDV IVPUSH ONE ×2 (17:26→20:01)
[2022-05-25 18:25] LABS: CARBON DIOXIDE,CO2 21.1 mmol/L (21.0-32.0); POTASSIUM,K 3.1 mmol/L (3.5-5.1)
[2022-05-25] MEDS ORDERED: Amoxicillin/Clavulanate K 875-125 MG Tab PO STA (22:11)
[2022-05-25 22:33] VITALS: BP 129/80; PULSE 73
== END 2022-05-25 22:33 | disposition home or self-care (01) ==
LOC: MW.ED 16:21
DX: K57.32 Diverticulitis of large intestine without perforation or abscess without bleeding (principal); K56.7 Ileus, unspecified; Z88.0 Allergy status to penicillin
CPT/HCPCS: 36415; 74176; 80053; 81001; 81025; 85025; 96361; 96374; 96375; 99284; A9270; J2405; J3010; J7030

== ENCOUNTER 2022-05-27 10:19 | Emergency (ER) | payer BC ==
[2022-05-27 10:42] VITALS: BP 125/74; PULSE 85
[2022-05-27] MEDS: Sodium Chloride 0.9% 1,000 ML IV ONE (11:17)
[2022-05-27 11:50] LABS: POTASSIUM,K 4.2 mmol/L (3.5-5.1)
[2022-05-27] MEDS: Ondansetron 4 MG/2 ML SDV IVPUSH ONE (12:01)
[2022-05-27] MEDS: Morphine 4 MG/ML Syringe IVPUSH ONE (12:01)
== END 2022-05-27 15:11 | disposition home or self-care (01) ==
LOC: MW.ED 10:19
DX: R10.32 Left lower quadrant pain (principal); Z88.0 Allergy status to penicillin; Z79.899 Other long term (current) drug therapy; Z90.49 Acquired absence of other specified parts of digestive tract
CPT/HCPCS: 36415; 74019; 80053; 81001; 85025; 96361; 96374; 96375; 99284; J2270; J2405; J7030